=== PATIENT | male | born 1980 | race African-American/Black ===

== ENCOUNTER 2017-01-01 16:00 | Emergency (ER) | payer OTHER ==
[~2017-01-01] VITALS: Ht 180.3 cm; Wt 77.6 kg
[~2017-01-01 16:00] MED LIST: *INS REG3 IJ; NPH,100V2 SQ
--- NOTE | 2017-01-01 16:00 | NUR ---
BIB COUSIN DT ABDOMINAL, SHARP/ ACHING X THIS MORNING. DENIES NAUSEA AND VOMITTING. NO DIARHEA REPORTED. SKIN IS WARM TO TOUCH AND NON DIAPHORETIC. AFEBRILE. VSS
[2017-01-01] MEDS ORDERED: ONDANSETRON HCL/PF 4 MG/2 ML VIAL ONE (16:23)
[2017-01-01] MEDS ORDERED: MORPHINE SULFATE INJ 4 MG/ML DISP.SYRIN ONE (16:23)
[2017-01-01 16:30] LABS: BASOPHILS % (AUTO) 0.7 % (0.0-2.0); EOSINOPHILS # (AUTO) 0.1 /CMM (0.0-0.7); EOSINOPHILS % (AUTO) 1.5 % (0.0-6.0); HEMATOCRIT 43 % (39-51); HEMOGLOBIN 13.8 g/dL (13.5-17.5); LYMPHOCYTES # (AUTO) 1.8 /CMM (0.8-4.8); LYMPHOCYTES % (AUTO) 28.7 % (20.0-44.0); MEAN CORPUSCULAR HEMOGLOBIN 30 PG (26.0-33.0); MEAN CORPUSCULAR HGB CONC 32 g/dl (31.0-36.0); MEAN CORPUSCULAR VOLUME 95 fL (80-96); MONOCYTES # (AUTO) 0.5 /CMM (0.1-1.30); MONOCYTES % (AUTO) 7.3 % (2.0-12.0); NEUTROPHILS % (AUTO) 61.8 % (43.0-81.0); PLATELET COUNT (AUTO) 187 /CMM (150-450); RDW COEFFICIENT OF VARIATION 13.2 (11.5-15.0); RED BLOOD CELL COUNT(AUTO) 4.58 MIL/uL (4.5-6.0); WHITE BLOOD COUNT (AUTO) 6.4 K/uL (4.3-11.0)
[2017-01-01] MEDS ORDERED: IV NS 0.9% 1,000 ML BAG IV ONE (16:30)
[2017-01-01] MEDS ORDERED: ONDANSETRON HCL/PF 4 MG/2 ML VIAL IVP ONE (16:30)
[2017-01-01] MEDS ORDERED: MORPHINE SULFATE INJ 2 MG/ML DISP.SYRIN IV ONE (16:30)
[2017-01-01 16:43] LABS: CALCIUM, SERUM 9.1 mg/dL (8.5-10.1); CREATININE 1.2 mg/dL (0.6-1.3); POTASSIUM 3.9 mmol/L (3.5-5.1)
[2017-01-01 16:49] LABS: ALBUMIN 3.9 g/dL (3.4-5.0); BILIRUBIN,DIRECT 0.1 mg/dL (0.0-0.2); BILIRUBIN,TOTAL 0.5 mg/dL (0.2-1.0); TOTAL PROTEIN, SERUM 7.6 g/dL (6.4-8.2)
[2017-01-01 16:56] VITALS: BP 132/80
== END 2017-01-01 17:11 | disposition home or self-care (01) ==
LOC: ER 16:03
DX: R10.13 Epigastric pain (principal); R11.2 Nausea with vomiting, unspecified; E10.9 Type 1 diabetes mellitus without complications; F17.200 Nicotine dependence, unspecified, uncomplicated
CPT/HCPCS: 36415; 80048; 80076; 83690; 85025; 96361; 96374; 96375; 99284; A4606; J2270; J2405; J7030; Z7610

== ENCOUNTER 2017-01-23 00:44 | Emergency (ER) | payer OTHER ==
[~2017-01-23] VITALS: Ht 180.3 cm; Wt 77.6 kg
--- NOTE | 2017-01-23 00:54 | NUR ---
PT BIB FATHER FROM HOME, PT AMBULATORY TO ER BED 5. PT C/O UPPER ABD PAIN X 3 DAYS WITH N/V. PT GOWNED AND PLACED ON MONTIOR. PT AOX3 RR EVEN AND UNLABORED. NO SOB NOTED. NAD NOTED. NO NVD AT THIS TIME. PT NOT DIAPHORETIC. DR. DUARTE AT BEDSIDE FOR EVAL.
[2017-01-23] MEDS ORDERED: ONDANSETRON HCL/PF 4 MG/2 ML VIAL ONE ×2 (00:59→03:03)
[2017-01-23] MEDS ORDERED: HYDROMORPHONE INJ 2 MG/ML DISP.SYRIN IV ONE (01:00)
[2017-01-23] MEDS ORDERED: IV NS 0.9% 1,000 ML BAG IV ONE (01:00)
[2017-01-23] MEDS ORDERED: ONDANSETRON HCL/PF 4 MG/2 ML VIAL IVP ONE (01:00)
[2017-01-23] MEDS ORDERED: HYDROMORPHONE INJ 2 MG/ML DISP.SYRIN ONE ×3 (01:00→03:04)
--- NOTE | 2017-01-23 01:24 | NUR ---
LAB AT BEDSIDE FOR BLOOD DRAW. RT AT BEDSIDE FOR VBG DRAW.
[2017-01-23 01:27] LABS: ABG BASE EXCESS 0.6 mmol/L; ABG OXYGEN SATURATION 85.2 % (92.0-98.5); ABG PCO2 43.1 mmHg (35.0-45.0); ABG PH 7.393 (7.350-7.450); ABG PO2 51.5 mmHg (75.0-100.0); COHb 0.7 % (0.5-1.5); MetHb 0.6 % (0.0-1.5); O2Hb 84.1 % (94.0-97.0); VENT MODE, BG ROOM AIR
--- NOTE | 2017-01-23 01:29 | NUR ---
DR. DUARTE AT BEDSIDE. VERBAL ORDERS PER GERALD TO GIVE PT IVP DILAUDID 1MG NOW. PT MEDICATED.
--- NOTE | 2017-01-23 01:51 | NUR ---
COLLECTED URINE. CALLED FOR KARDEX CLERK.
[2017-01-23] MEDS ORDERED: HYDROMORPHONE 1 MG/1 ML DISP.SYRIN IV ONE ×2 (02:00→03:30)
[2017-01-23 02:01] LABS: BASOPHILS # (AUTO) 0.1 /CMM (0.0-0.2); BASOPHILS % (AUTO) 0.4 % (0.0-2.0); EOSINOPHILS # (AUTO) 0.1 /CMM (0.0-0.7); EOSINOPHILS % (AUTO) 0.5 % (0.0-6.0); HEMATOCRIT 40 % (39-51); HEMOGLOBIN 13.4 g/dL (13.5-17.5); LYMPHOCYTES # (AUTO) 1.6 /CMM (0.8-4.8); LYMPHOCYTES % (AUTO) 12.3 % (20.0-44.0); MEAN CORPUSCULAR HEMOGLOBIN 31 PG (26.0-33.0); MEAN CORPUSCULAR HGB CONC 33 g/dl (31.0-36.0); MEAN CORPUSCULAR VOLUME 94 fL (80-96); MONOCYTES # (AUTO) 0.7 /CMM (0.1-1.30); MONOCYTES % (AUTO) 5.5 % (2.0-12.0); NEUTROPHILS # (AUTO) 10.3 /CMM (1.8-8.9); NEUTROPHILS % (AUTO) 81.3 % (43.0-81.0); PLATELET COUNT (AUTO) 243 /CMM (150-450); RDW COEFFICIENT OF VARIATION 12.9 (11.5-15.0); RED BLOOD CELL COUNT(AUTO) 4.31 MIL/uL (4.5-6.0); WHITE BLOOD COUNT (AUTO) 12.6 K/uL (4.3-11.0)
[2017-01-23 02:03] LABS: ALBUMIN 3.1 g/dL (3.4-5.0); BILIRUBIN,DIRECT 0.1 mg/dL (0.0-0.2); BILIRUBIN,TOTAL 0.5 mg/dL (0.2-1.0); CALCIUM, SERUM 8.8 mg/dL (8.5-10.1); CREATININE 1.4 mg/dL (0.6-1.3); POTASSIUM 4.8 mmol/L (3.5-5.1); TOTAL PROTEIN, SERUM 7.5 g/dL (6.4-8.2)
[2017-01-23 02:23] LABS: APPEARANCE,URINE CLEAR (CLEAR); BILIRUBIN,URINE NEGATIVE (NEGATIVE); BLOOD, URINE NEGATIVE Ery/uL (NEGATIVE); COLOR,URINE YELLOW (YELLOW); KETONES,URINE NEGATIVE (NEGATIVE); LEUKOCYTE ESTERASE ,URINE NEGATIVE (NEGATIVE); NITRITE, URINE NEGATIVE (NEGATIVE); PROTEIN,URINE NEGATIVE (NEGATIVE); UGLUCOSE NEGATIVE (NEGATIVE); UROBILINOGEN,URINE 0.2 EU/dL (0.2)
[2017-01-23 02:30] LABS: INR 1.01 (0.87-1.13); PROTHROMBIN TIME 10.8 SECS (9.5-12.7)
[2017-01-23] MEDS ORDERED: INSULIN REGULAR, HUMAN 100 UNIT/ML 10 ML VIAL SQ ONE (02:30)
--- NOTE | 2017-01-23 03:07 | NUR ---
PT C/O ABD PAIN S/P PO CHALLENGE. DR. DUARTE MADE AWARE
--- NOTE | 2017-01-23 03:08 | NUR ---
VERBAL ORDERS PER DR. DUARTE TO GIVE IVP DILAUDID 1GM AND ZOFRAN 4MG NOW. PT MEDICATED.
--- NOTE | 2017-01-23 03:24 | NUR ---
PT ASSIGNED TO [facility] BED 322-1
--- NOTE | 2017-01-23 03:28 | NUR ---
REPORT GIVEN TO KATIE RAPP FOR [facility] BED 322-1
[2017-01-23] MEDS ORDERED: ONDANSETRON HCL/PF 4 MG/2 ML VIAL IV ONE (03:30)
[2017-01-23] MEDS ORDERED: diphenhydrAMINE HCL 50 MG/ML VIAL ONE (03:42)
[2017-01-23] MEDS ORDERED: diphenhydrAMINE HCL 50 MG/ML VIAL IV ONE (04:00)
--- NOTE | 2017-01-23 04:37 | NUR ---
DR. DUARTE AT BEDSIDE SPEAKING TO PT. PT STATES " I WANT TO WAIT THINGS OUT BEFORE I DECIDED WHAT TO DO"
--- NOTE | 2017-01-23 04:54 | NUR ---
PT PASSED PO CHALLENGE. DR. DUARTE MADE AWARE
--- NOTE | 2017-01-23 05:00 | NUR ---
IV removed. Catheter intact and site benign. Pressure and 4x4 applied to site. No bleeding noted. Patient discharged to home in stable condition. Written and verbal after care instructions given. Patient verbalizes understanding of instruction. ambulatory with a steady gait. instructed not to drive. pt verbalize understanding. pt accompanied by father
[2017-01-23 05:01] VITALS: BP 136/62
== END 2017-01-23 05:03 | disposition home or self-care (01) ==
LOC: ER 00:46
DX: K85.90 Acute pancreatitis without necrosis or infection, unspecified (principal); E10.65 Type 1 diabetes mellitus with hyperglycemia; F17.200 Nicotine dependence, unspecified, uncomplicated; E86.0 Dehydration; K86.1 Other chronic pancreatitis; Z79.4 Long term (current) use of insulin
CPT/HCPCS: 36415; 36600; 80048; 80076; 81001; 82962 ×2; 83690; 85025; 85730; 96361; 96372; 96374; 96375; 96376; 99284; A4606; J1170 ×3; J1200; J2405 ×2; J7030; Z7610; 81000-TC

== ENCOUNTER 2017-02-18 12:07 | Emergency (ER) | payer OTHER ==
[~2017-02-18] VITALS: Ht 180.3 cm; Wt 77.6 kg
--- NOTE | 2017-02-18 12:15 | NUR ---
AAOX3, CAME TO ER C/O UPPER ABDOMINAL PAIN. SKIN IS WARM AND DRY. RESP IS EVEN AND UNLABORED WITH NAD NOTED. AWAITING MD FOR EVAL.
[2017-02-18] MEDS ORDERED: IV NS 0.9% 1,000 ML BAG IV ONE (12:30)
[2017-02-18] MEDS ORDERED: HYDROMORPHONE INJ 2 MG/ML DISP.SYRIN IV ONE (12:30)
[2017-02-18] MEDS ORDERED: ONDANSETRON HCL/PF 4 MG/2 ML VIAL IVP ONE (12:30)
[2017-02-18] MEDS ORDERED: diphenhydrAMINE HCL 50 MG/ML VIAL IV ONE ×2 (12:30→15:00)
[2017-02-18] MEDS ORDERED: diphenhydrAMINE HCL 50 MG/ML VIAL ONE ×2 (12:33→14:44)
[2017-02-18] MEDS ORDERED: HYDROMORPHONE INJ 2 MG/ML DISP.SYRIN ONE ×3 (12:33→14:32)
[2017-02-18] MEDS ORDERED: ONDANSETRON HCL/PF 4 MG/2 ML VIAL ONE (12:33)
[2017-02-18 12:36] LABS: BASOPHILS % (AUTO) 0.3 % (0.0-2.0); EOSINOPHILS # (AUTO) 0.1 /CMM (0.0-0.7); EOSINOPHILS % (AUTO) 0.7 % (0.0-6.0); HEMATOCRIT 42 % (39-51); LYMPHOCYTES # (AUTO) 1.4 /CMM (0.8-4.8); LYMPHOCYTES % (AUTO) 17.7 % (20.0-44.0); MEAN CORPUSCULAR HEMOGLOBIN 31 PG (26.0-33.0); MEAN CORPUSCULAR HGB CONC 33 g/dl (31.0-36.0); MEAN CORPUSCULAR VOLUME 94 fL (80-96); MONOCYTES # (AUTO) 0.4 /CMM (0.1-1.30); MONOCYTES % (AUTO) 4.7 % (2.0-12.0); NEUTROPHILS # (AUTO) 6.1 /CMM (1.8-8.9); NEUTROPHILS % (AUTO) 76.6 % (43.0-81.0); PLATELET COUNT (AUTO) 195 /CMM (150-450); RDW COEFFICIENT OF VARIATION 13.6 (11.5-15.0); RED BLOOD CELL COUNT(AUTO) 4.46 MIL/uL (4.5-6.0); WHITE BLOOD COUNT (AUTO) 7.9 K/uL (4.3-11.0)
[2017-02-18 13:07] LABS: ALBUMIN 3.7 g/dL (3.4-5.0); BILIRUBIN,DIRECT 0.1 mg/dL (0.0-0.2); BILIRUBIN,TOTAL 0.5 mg/dL (0.2-1.0); CALCIUM, SERUM 9.2 mg/dL (8.5-10.1); CREATININE 1.4 mg/dL (0.6-1.3); POTASSIUM 4.1 mmol/L (3.5-5.1); TOTAL PROTEIN, SERUM 7.4 g/dL (6.4-8.2)
[2017-02-18] MEDS ORDERED: HYDROMORPHONE 1 MG/1 ML DISP.SYRIN IV ONE ×2 (13:30→14:00)
--- NOTE | 2017-02-18 13:30 | NUR ---
Patient is resting comfortably in bed with eyes closed. Easily aroused. VSS
[2017-02-18] MEDS ORDERED: IV NS 0.9% 1,000 ML IV ONE (14:00)
--- NOTE | 2017-02-18 15:22 | NUR ---
IV removed. Catheter intact and site benign. Pressure and 4x4 applied to site. No bleeding noted.Patient discharged to home in stable condition. Written and verbal after care instructions given. Patient verbalizes understanding of instruction.
[2017-02-18 15:38] VITALS: BP 115/76
== END 2017-02-18 15:39 | disposition home or self-care (01) ==
LOC: ER 12:08
DX: R10.9 Unspecified abdominal pain (principal); E10.9 Type 1 diabetes mellitus without complications; G89.29 Other chronic pain; F17.200 Nicotine dependence, unspecified, uncomplicated; Z79.4 Long term (current) use of insulin
CPT/HCPCS: 36415; 80048; 80076; 83690; 85025; 96361; 96374 ×2; 96375; 96376; 99284; A4606; J1170 ×3; J1200 ×2; J2405; J7030 ×2; Z7610

== ENCOUNTER 2017-03-14 09:14 | Emergency (ER) | payer OTHER ==
[~2017-03-14] VITALS: Ht 180.3 cm; Wt 79.4 kg
--- NOTE | 2017-03-14 09:14 | NUR ---
ABDOMIANL PAIN AND VOMITING SINCE THIS MORNING. PLACED ON MONITOR. AWAITING MD ORDER
[2017-03-14 09:45] LABS: BASOPHILS % (AUTO) 0.5 % (0.0-2.0); EOSINOPHILS # (AUTO) 0.1 /CMM (0.0-0.7); EOSINOPHILS % (AUTO) 1.3 % (0.0-6.0); HEMATOCRIT 41 % (39-51); HEMOGLOBIN 13.6 g/dL (13.5-17.5); LYMPHOCYTES # (AUTO) 1.3 /CMM (0.8-4.8); LYMPHOCYTES % (AUTO) 21.8 % (20.0-44.0); MEAN CORPUSCULAR HEMOGLOBIN 31 PG (26.0-33.0); MEAN CORPUSCULAR HGB CONC 33 g/dl (31.0-36.0); MEAN CORPUSCULAR VOLUME 94 fL (80-96); MONOCYTES # (AUTO) 0.3 /CMM (0.1-1.30); MONOCYTES % (AUTO) 4.6 % (2.0-12.0); NEUTROPHILS # (AUTO) 4.4 /CMM (1.8-8.9); NEUTROPHILS % (AUTO) 71.8 % (43.0-81.0); PLATELET COUNT (AUTO) 246 /CMM (150-450); RDW COEFFICIENT OF VARIATION 13.2 (11.5-15.0); RED BLOOD CELL COUNT(AUTO) 4.39 MIL/uL (4.5-6.0); WHITE BLOOD COUNT (AUTO) 6.1 K/uL (4.3-11.0)
[2017-03-14 09:54] LABS: CREATININE 1.2 mg/dL (0.6-1.3); POTASSIUM 3.6 mmol/L (3.5-5.1)
[2017-03-14 10:00] LABS: ALBUMIN 3.7 g/dL (3.4-5.0); BILIRUBIN,DIRECT 0.1 mg/dL (0.0-0.2); BILIRUBIN,TOTAL 0.3 mg/dL (0.2-1.0); TOTAL PROTEIN, SERUM 7.3 g/dL (6.4-8.2)
[2017-03-14] MEDS ORDERED: HYDROMORPHONE INJ 2 MG/ML DISP.SYRIN IV ONE (10:00)
[2017-03-14] MEDS ORDERED: IV NS 0.9% 500 ML BAG IV ONE (10:00)
[2017-03-14] MEDS ORDERED: IV NS 0.9% 1,000 ML BAG IV ONE (10:00)
[2017-03-14] MEDS ORDERED: ONDANSETRON HCL/PF 4 MG/2 ML VIAL IVP ONE (10:00)
[2017-03-14] MEDS ORDERED: LORAZEPAM INJ 2 MG/ML VIAL IV ONE (10:00)
[2017-03-14] MEDS ORDERED: ONDANSETRON HCL/PF 4 MG/2 ML VIAL ONE (10:11)
[2017-03-14] MEDS ORDERED: DEXTROSE 50%-WATER 50 ML DISP.SYRIN ONE (10:11)
[2017-03-14] MEDS ORDERED: HYDROMORPHONE 1 MG/1 ML DISP.SYRIN ONE (10:11)
[2017-03-14] MEDS ORDERED: LORAZEPAM INJ 2 MG/ML VIAL ONE (10:12)
[2017-03-14] MEDS ORDERED: DEXTROSE 50%-WATER 50 ML DISP.SYRIN IVP ONE (10:30)
--- NOTE | 2017-03-14 10:30 | NUR ---
BLOOD SUGAR 47, MD INFORMED. PATIENT MEDICATED PER MD ORDERS, INCLUDING D50.
[2017-03-14] MEDS ORDERED: HYDROCODONE/APAP 10/325MG 1 EA TABLET ONE (11:09)
--- NOTE | 2017-03-14 11:17 | NUR ---
CANCEL VBG PER DR RAY
[2017-03-14] MEDS ORDERED: HYDROCODONE/APAP 10/325MG 1 EA TABLET PO ONE (11:30)
--- NOTE | 2017-03-14 12:06 | NUR ---
IV removed. Catheter intact and site benign. Pressure and 4x4 applied to site. No bleeding noted.
--- NOTE | 2017-03-14 12:06 | NUR ---
Patient discharged to home in stable condition. Written and verbal after care instructions given. Patient verbalizes understanding of instruction.
[2017-03-14 12:07] VITALS: BP 135/92
== END 2017-03-14 12:07 | disposition home or self-care (01) ==
LOC: ER 09:15 → UNDOADMIN 11:17 → MED 11:17
DX: K86.1 Other chronic pancreatitis (principal); F11.20 Opioid dependence, uncomplicated; E11.9 Type 2 diabetes mellitus without complications; F17.200 Nicotine dependence, unspecified, uncomplicated; Z79.4 Long term (current) use of insulin
CPT/HCPCS: 36415; 80048; 80076; 82962 ×2; 83690; 85025; 96361; 96374; 96375; 99284; A4606; J1170; J2060; J2405; J7030; J7040; Z7610

== ENCOUNTER 2017-03-24 12:28 | Emergency (ER) | payer OTHER ==
[~2017-03-24] VITALS: Ht 180.3 cm; Wt 77.6 kg
--- NOTE | 2017-03-24 12:28 | NUR ---
SELF PRESENTS TO ER C/O DIFFUSE ABD PAIN SINCE 4AM TODAY. A/OX 4. BREATHING EVEN AND UNLABORED ON ROOM AIR. NO SOB. VITALS STABLE. SAFETY AND COMFORT MEASURES IN PLACE. AWAITING MD ORDERS.
--- NOTE | 2017-03-24 13:20 | NUR ---
NEW IV STARTED ON RFA, 18 G.
[2017-03-24] MEDS ORDERED: ONDANSETRON HCL/PF 4 MG/2 ML VIAL IV ONE ×2 (13:30→14:30)
[2017-03-24] MEDS ORDERED: FAMOTIDINE/PF INJ 20 MG/2 ML VIAL IV ONE ×2 (13:30→13:37)
[2017-03-24] MEDS ORDERED: IV NS 0.9% 1,000 ML BAG IV ONE (13:30)
[2017-03-24] MEDS ORDERED: MORPHINE SULFATE INJ 2 MG/ML DISP.SYRIN IV ONE (13:30)
[2017-03-24] MEDS ORDERED: ONDANSETRON HCL/PF 4 MG/2 ML VIAL ONE ×2 (13:37→14:23)
[2017-03-24] MEDS ORDERED: MORPHINE SULFATE INJ 10 MG/ML DISP.SYRIN ONE (13:37)
--- NOTE | 2017-03-24 13:43 | NUR ---
PATIENT MEDICATED PER MD ORDERS.
[2017-03-24 13:52] LABS: BASOPHILS % (AUTO) 0.4 % (0.0-2.0); EOSINOPHILS % (AUTO) 0.7 % (0.0-6.0); HEMATOCRIT 41 % (39-51); HEMOGLOBIN 13.8 g/dL (13.5-17.5); LYMPHOCYTES # (AUTO) 1.1 /CMM (0.8-4.8); LYMPHOCYTES % (AUTO) 19.5 % (20.0-44.0); MEAN CORPUSCULAR HEMOGLOBIN 32 PG (26.0-33.0); MEAN CORPUSCULAR HGB CONC 34 g/dl (31.0-36.0); MEAN CORPUSCULAR VOLUME 94 fL (80-96); MONOCYTES # (AUTO) 0.4 /CMM (0.1-1.30); MONOCYTES % (AUTO) 6.6 % (2.0-12.0); NEUTROPHILS % (AUTO) 72.8 % (43.0-81.0); PLATELET COUNT (AUTO) 211 /CMM (150-450); RDW COEFFICIENT OF VARIATION 14.2 (11.5-15.0); RED BLOOD CELL COUNT(AUTO) 4.34 MIL/uL (4.5-6.0); WHITE BLOOD COUNT (AUTO) 5.6 K/uL (4.3-11.0)
[2017-03-24 14:03] LABS: CALCIUM, SERUM 9.7 mg/dL (8.5-10.1); CREATININE 1.3 mg/dL (0.6-1.3); POTASSIUM 3.9 mmol/L (3.5-5.1)
[2017-03-24 14:06] LABS: ALBUMIN 3.8 g/dL (3.4-5.0); BILIRUBIN,DIRECT 0.1 mg/dL (0.0-0.2); BILIRUBIN,TOTAL 0.4 mg/dL (0.2-1.0); TOTAL PROTEIN, SERUM 7.5 g/dL (6.4-8.2)
[2017-03-24] MEDS ORDERED: MAG HYDROX/AL HYDROX/SIMETH 30 ML UDC ONE (14:23)
[2017-03-24] MEDS ORDERED: ACETAMINOPHEN ES 500 MG TABLET ONE (14:23)
[2017-03-24] MEDS ORDERED: ACETAMINOPHEN ES 500 MG TABLET PO ONE (14:30)
[2017-03-24] MEDS ORDERED: MAG HYDROX/AL HYDROX/SIMETH 30 ML UDC PO ONE (14:30)
--- NOTE | 2017-03-24 14:37 | NUR ---
IV removed. Catheter intact and site benign. Pressure and 4x4 applied to site. No bleeding noted. Patient discharged to home in stable condition. Written and verbal after care instructions given. Patient verbalizes understanding of instruction.
[2017-03-24 14:41] VITALS: BP 124/81
== END 2017-03-24 14:35 | disposition home or self-care (01) ==
LOC: ER 12:30
DX: Z76.5 Malingerer [conscious simulation] (principal); R10.13 Epigastric pain; E10.9 Type 1 diabetes mellitus without complications; F17.200 Nicotine dependence, unspecified, uncomplicated; Z79.4 Long term (current) use of insulin
CPT/HCPCS: 36415; 80048; 80076; 83690; 85025; 96374; 96375; 96376; 99284; A4606; J2270; J2405 ×2; J3490; J7030; Z7610

== ENCOUNTER 2017-03-30 03:24 | Emergency (ER) | payer OTHER ==
[~2017-03-30] VITALS: Ht 180.3 cm; Wt 77.6 kg
--- NOTE | 2017-03-30 03:40 | NUR ---
BIB GIRLFRIEND, C/O UPPER ABD PAIN SINCE 11PM. HX PANCREATITIS. PT AOX3 RR EVEN AND UNLABORED. NO SOB NOTED. NAD NOTED. NO NVD AT THIS TIME. PT GOWNED AND PLACED ON MONITOR WAITING FOR MD LUNDBERG.
--- NOTE | 2017-03-30 03:44 | NUR ---
DR. BROWN AT BEDSIDE FOR EVAL.
[2017-03-30] MEDS ORDERED: ONDANSETRON HCL/PF 4 MG/2 ML VIAL ONE (03:45)
[2017-03-30 03:54] LABS: BASOPHILS % (AUTO) 0.3 % (0.0-2.0); EOSINOPHILS # (AUTO) 0.1 /CMM (0.0-0.7); EOSINOPHILS % (AUTO) 1.3 % (0.0-6.0); HEMATOCRIT 38 % (39-51); HEMOGLOBIN 12.6 g/dL (13.5-17.5); LYMPHOCYTES # (AUTO) 1.6 /CMM (0.8-4.8); LYMPHOCYTES % (AUTO) 30.5 % (20.0-44.0); MEAN CORPUSCULAR HEMOGLOBIN 32 PG (26.0-33.0); MEAN CORPUSCULAR HGB CONC 34 g/dl (31.0-36.0); MEAN CORPUSCULAR VOLUME 95 fL (80-96); MONOCYTES # (AUTO) 0.3 /CMM (0.1-1.30); MONOCYTES % (AUTO) 5.1 % (2.0-12.0); NEUTROPHILS # (AUTO) 3.3 /CMM (1.8-8.9); NEUTROPHILS % (AUTO) 62.8 % (43.0-81.0); PLATELET COUNT (AUTO) 175 /CMM (150-450); RDW COEFFICIENT OF VARIATION 14.6 (11.5-15.0); RED BLOOD CELL COUNT(AUTO) 3.95 MIL/uL (4.5-6.0); WHITE BLOOD COUNT (AUTO) 5.3 K/uL (4.3-11.0)
[2017-03-30] MEDS ORDERED: HYDROMORPHONE INJ 2 MG/ML DISP.SYRIN ONE (03:59)
[2017-03-30] MEDS ORDERED: ONDANSETRON HCL/PF 4 MG/2 ML VIAL IVP ONE (04:00)
[2017-03-30] MEDS ORDERED: MORPHINE SULFATE INJ 2 MG/ML DISP.SYRIN IV ONE (04:00)
[2017-03-30] MEDS ORDERED: IV NS 0.9% 1,000 ML BAG IV ONE (04:00)
[2017-03-30] MEDS ORDERED: HYDROMORPHONE 1 MG/1 ML DISP.SYRIN IV ONE (04:00)
--- NOTE | 2017-03-30 04:05 | NUR ---
RECEIVED MEDICATION FROM [facility] Addendum: 04/01/17 at 0700 by ATADINA RECEIVED MEDICATION, DILAUDID 2MG IV FROM [facility]; WASTED 1.75MG WITH KOKO ASKEW MD ORDER DILAUDID 0.25 MG IVP.
[2017-03-30 04:07] LABS: INR 0.95 (0.87-1.13); PROTHROMBIN TIME 9.9 SECS (9.5-12.7)
--- NOTE | 2017-03-30 04:11 | NUR ---
URINE COLLECTED. CALLED LAB FOR PACKAGING TECH.
--- NOTE | 2017-03-30 04:17 | NUR ---
PT TO CT
[2017-03-30 04:18] LABS: ALBUMIN 3.3 g/dL (3.4-5.0); BILIRUBIN,DIRECT 0.1 mg/dL (0.0-0.2); BILIRUBIN,TOTAL 0.2 mg/dL (0.2-1.0); CREATININE 1.3 mg/dL (0.6-1.3); POTASSIUM 4.2 mmol/L (3.5-5.1); TOTAL PROTEIN, SERUM 6.7 g/dL (6.4-8.2)
--- NOTE | 2017-03-30 04:21 | NUR ---
PT RETURNED FROM CT.
[2017-03-30] MEDS ORDERED: MAG HYDROX/AL HYDROX/SIMETH 30 ML UDC ONE (04:38)
[2017-03-30] MEDS ORDERED: LIDOCAINE VISCOUS 2% UD 15 ML UDC ONE (04:38)
[2017-03-30 04:39] LABS: APPEARANCE,URINE CLEAR (CLEAR); COLOR,URINE YELLOW (YELLOW)
[2017-03-30 04:40] LABS: BILIRUBIN,URINE NEGATIVE (NEGATIVE); BLOOD, URINE TRACE Ery/uL (NEGATIVE); KETONES,URINE NEGATIVE (NEGATIVE); NITRITE, URINE NEGATIVE (NEGATIVE); PROTEIN,URINE TRACE mg/dl (NEGATIVE); UGLUCOSE 3+ mg/dL (NEGATIVE); UROBILINOGEN,URINE 0.2 EU/dL (0.2)
[2017-03-30 04:41] LABS: LEUKOCYTE ESTERASE ,URINE NEGATIVE (NEGATIVE)
[2017-03-30 04:43] LABS: BACTERIA,URINE None seen /HPF (None Seen); RBC,URINE 0-2 /HPF (0-2); SQUAMOUS EPITHELIAL CELL,UR Few /HPF (None Seen); WBC,URINE 0-2 /HPF (0-3)
[2017-03-30] MEDS ORDERED: MAG HYDROX/AL HYDROX/SIMETH 30 ML UDC PO ONE (05:00)
[2017-03-30] MEDS ORDERED: LIDOCAINE VISCOUS 2% UD 15 ML UDC MM ONE (05:00)
[2017-03-30] MEDS ORDERED: INSULIN REGULAR, HUMAN 100 UNIT/ML 10 ML VIAL ONE (05:09)
--- NOTE | 2017-03-30 05:24 | NUR ---
IV removed. Catheter intact and site benign. Pressure and 4x4 applied to site. No bleeding noted. Patient discharged to home in stable condition. Written and verbal after care instructions given. Patient verbalizes understanding of instruction. ambulatory with a steady gait. instructed not to drive. pt verbalize understanding. pt refused to recheck bs after receiving insulin. Patient does not wish to proceed with medical care recommended by Dr. Valente. Patient given information related to possible complications, up to and including , which could occur as a result of leaving the hospital at this time. Patient verbalizes understanding of risks involved due to leaving against medical advice. Patient has signed AMA form.
[2017-03-30 05:27] VITALS: BP 142/82
[2017-03-30] MEDS ORDERED: INSULIN REGULAR, HUMAN 100 UNIT/ML 10 ML VIAL SQ ONE (05:30)
== END 2017-03-30 05:36 | disposition left against medical advice (07) ==
LOC: ER 03:30
DX: K21.9 Gastro-esophageal reflux disease without esophagitis (principal); F12.90 Cannabis use, unspecified, uncomplicated; E11.9 Type 2 diabetes mellitus without complications; E10.9 Type 1 diabetes mellitus without complications; F17.200 Nicotine dependence, unspecified, uncomplicated; Z79.4 Long term (current) use of insulin; Z76.5 Malingerer [conscious simulation]
CPT/HCPCS: 36415; 74176; 80048; 80076; 80305; 81001; 82962 ×3; 83690; 85025; 85730; 93005; 96361; 96372; 96374; 96375; 99285; A4606; G0480; J1170; J1815; J2405; J7030; Z7610; 81000-TC

== ENCOUNTER 2017-06-03 04:26 | Emergency (ER) | payer OTHER ==
[~2017-06-03] VITALS: Ht 180.3 cm; Wt 77.6 kg
--- NOTE | 2017-06-03 05:11 | NUR ---
PT RECEIEVED FROM HOME BIB FROM HOME C/O RUQ ABDOMINAL PAIN X2 HOURS BUT STATED "I HAVE PANCREATITIS FOR 5 YEARS NOW" WITH PAIN AT 7/10 NONRADIATING. NO SOB NOTED AT THIS TIME. WAS SEEN SLIDING TO FLOOR IN WAITING ROOM D/T PAIN WITH OUTBURSTS OF "OW". A/OX4 VSS AND WILL CONTINUE TO MONITOR FOR ANY CHANGES
[2017-06-03] MEDS ORDERED: IV NS 0.9% 1,000 ML BAG IV ONE (05:30)
[2017-06-03 05:34] LABS: BASOPHILS % (AUTO) 0.1 % (0.0-2.0); EOSINOPHILS # (AUTO) 0.1 /CMM (0.0-0.7); EOSINOPHILS % (AUTO) 0.9 % (0.0-6.0); HEMATOCRIT 40 % (39-51); HEMOGLOBIN 13.6 g/dL (13.5-17.5); LYMPHOCYTES # (AUTO) 1.3 /CMM (0.8-4.8); LYMPHOCYTES % (AUTO) 20.8 % (20.0-44.0); MEAN CORPUSCULAR HEMOGLOBIN 32 PG (26.0-33.0); MEAN CORPUSCULAR HGB CONC 34 g/dl (31.0-36.0); MEAN CORPUSCULAR VOLUME 94 fL (80-96); MONOCYTES # (AUTO) 0.3 /CMM (0.1-1.30); MONOCYTES % (AUTO) 4.5 % (2.0-12.0); NEUTROPHILS # (AUTO) 4.7 /CMM (1.8-8.9); NEUTROPHILS % (AUTO) 73.7 % (43.0-81.0); PLATELET COUNT (AUTO) 214 /CMM (150-450); RDW COEFFICIENT OF VARIATION 12.6 (11.5-15.0); RED BLOOD CELL COUNT(AUTO) 4.21 MIL/uL (4.5-6.0); WHITE BLOOD COUNT (AUTO) 6.4 K/uL (4.3-11.0)
[2017-06-03 05:44] LABS: CALCIUM, SERUM 9.2 mg/dL (8.5-10.1); CREATININE 1.4 mg/dL (0.6-1.3); POTASSIUM 3.6 mmol/L (3.5-5.1)
[2017-06-03 05:50] LABS: ALBUMIN 3.7 g/dL (3.4-5.0); BILIRUBIN,DIRECT 0.1 mg/dL (0.0-0.2); BILIRUBIN,TOTAL 0.2 mg/dL (0.2-1.0); TOTAL PROTEIN, SERUM 7.4 g/dL (6.4-8.2)
[2017-06-03] MEDS ORDERED: ONDANSETRON HCL/PF 4 MG/2 ML VIAL ONE ×2 (06:05→07:35)
--- NOTE | 2017-06-03 06:25 | NUR ---
ER MD DELGADILLO IN ROOM FOR EVAL
[2017-06-03] MEDS ORDERED: diphenhydrAMINE HCL 50 MG/ML VIAL ONE (06:27)
[2017-06-03] MEDS ORDERED: HYDROMORPHONE 1 MG/1 ML DISP.SYRIN ONE ×2 (06:28→07:31)
[2017-06-03] MEDS ORDERED: diphenhydrAMINE HCL 50 MG/ML VIAL IV ONE (07:00)
[2017-06-03] MEDS ORDERED: ONDANSETRON HCL/PF - ER 4 MG/2 ML VIAL IV ONE ×2 (07:00→08:00)
[2017-06-03] MEDS ORDERED: HYDROMORPHONE 1 MG/1 ML DISP.SYRIN IV ONE (07:00)
[2017-06-03] MEDS ORDERED: INSULIN REGULAR, HUMAN 100 UNIT/ML 10 ML VIAL SQ ONE (07:00)
--- NOTE | 2017-06-03 07:05 | NUR ---
PT LAYING IN COMFORTABLE POSITION. NOT C/O PAIN AFTER RECEIVING ORDERED MEDS. WILL ENDORSE CARE TO AM NURSE
[2017-06-03] MEDS ORDERED: HYDROMORPHONE INJ 0.5 MG/0.5 ML SYRINGE IV ONE (07:30)
[2017-06-03 08:34] VITALS: BP 147/80
== END 2017-06-03 08:35 | disposition home or self-care (01) ==
LOC: ER 04:28
DX: R10.84 Generalized abdominal pain (principal); G89.29 Other chronic pain; E10.9 Type 1 diabetes mellitus without complications; F17.200 Nicotine dependence, unspecified, uncomplicated; Z79.4 Long term (current) use of insulin
CPT/HCPCS: 36415; 80048; 80076; 82962; 83690; 85025; 96372; 96374; 96375; 96376; 99284; A4606; J1170 ×2; J1200; J2405 ×4; Z7610

== ENCOUNTER 2019-11-03 02:07 | Emergency (ER) | payer OTHER ==
[~2019-11-03] VITALS: Ht 180.3 cm; Wt 77.6 kg
[2019-11-03] MEDS ORDERED: MORPHINE SULFATE INJ 4 MG/ML DISP.SYRIN ONE (02:18)
[2019-11-03] MEDS ORDERED: ONDANSETRON HCL/PF 4 MG/2 ML VIAL ONE (02:18)
--- NOTE | 2019-11-03 02:20 | NUR ---
PT [id number] FROM [facility] FOR ABD PAIN X 1D, +N/V. HX OF PANCREATITIS. PT AAOX4, RESPIRATIONS EVEN AND UNLABORED ON RA W/ NAD NOTED. PT CONNECTED TO THE MONITOR AND POX
[2019-11-03] MEDS ORDERED: ONDANSETRON HCL/PF 4 MG/2 ML VIAL IVP ONE (02:30)
[2019-11-03] MEDS ORDERED: MORPHINE SULFATE INJ 2 MG/ML DISP.SYRIN IV ONE (02:30)
[2019-11-03] MEDS ORDERED: IV NS 0.9% 1,000 ML BAG IV ONE (02:30)
--- NOTE | 2019-11-03 02:31 | NUR ---
BLOOD COLLECTED AND SENT TO LAB
[2019-11-03] MEDS ORDERED: IV NS 0.9% 250 ML IV ONE (02:51)
[2019-11-03] MEDS ORDERED: IOHEXOL-300 100 ML VIAL IV ONE (02:51)
[2019-11-03] MEDS ORDERED: CT SWABBABLE VALVE TRANS SET 1 EA INFUS.SET MC ONE (02:51)
[2019-11-03 03:00] LABS: ALBUMIN 3.7 g/dL (3.4-5.0); BILIRUBIN,DIRECT 0.1 mg/dL (0.0-0.2); BILIRUBIN,TOTAL 0.7 mg/dL (0.2-1.0); CALCIUM, SERUM 9.1 mg/dL (8.5-10.1); CREATININE 1.5 mg/dL (0.6-1.3); POTASSIUM 3.7 mmol/L (3.5-5.1); TOTAL PROTEIN, SERUM 7.2 g/dL (6.4-8.2)
--- NOTE | 2019-11-03 03:06 | NUR ---
PT STILL COMPLAINING OF PAIN. MD AWARE. PER VERBAL MD ORDER, WILL ADMINISTER 0.5MG DILAUDID IV X1 NOW
[2019-11-03] MEDS ORDERED: HYDROMORPHONE 1 MG/1 ML DISP.SYRIN ONE (03:09)
[2019-11-03 03:14] LABS: BASOPHILS % (AUTO) 0.4 % (0.0-2.0); EOSINOPHILS % (AUTO) 0.4 % (0.0-6.0); HEMATOCRIT 45 % (39-51); HEMOGLOBIN 15.1 g/dL (13.5-17.5); LYMPHOCYTES # (AUTO) 1.9 /CMM (0.8-4.8); LYMPHOCYTES % (AUTO) 24.4 % (20.0-44.0); MEAN CORPUSCULAR HGB CONC 33 g/dl (31.0-36.0); MEAN CORPUSCULAR VOLUME 93 fL (80-96); MONOCYTES # (AUTO) 0.5 /CMM (0.1-1.30); MONOCYTES % (AUTO) 5.7 % (2.0-12.0); NEUTROPHILS # (AUTO) 5.5 /CMM (1.8-8.9); NEUTROPHILS % (AUTO) 69.1 % (43.0-81.0); PLATELET COUNT (AUTO) 209 /CMM (150-450); RED BLOOD CELL COUNT(AUTO) 4.87 MIL/uL (4.5-6.0)
--- NOTE | 2019-11-03 03:19 | NUR ---
PT TAKEN TO RADIOLOGY FOR CT
[2019-11-03] MEDS ORDERED: HYDROMORPHONE INJ 0.5 MG/0.5 ML SYRINGE IV ONE (04:00)
--- NOTE | 2019-11-03 05:20 | NUR ---
PATIENT RUDE TO STAFFS. CALLING STAFFS "HOES".
--- NOTE | 2019-11-03 05:24 | NUR ---
IV removed. Catheter intact and site benign. Pressure and 4x4 applied to site. No bleeding noted.
--- NOTE | 2019-11-03 05:24 | NUR ---
Patient discharged to home in stable condition. Written and verbal after care instructions given. Patient verbalizes understanding of instruction.
[2019-11-03 05:25] VITALS: BP 126/74
== END 2019-11-03 05:25 | disposition home or self-care (01) ==
LOC: ER 02:08
DX: R10.11 Right upper quadrant pain (principal); R10.12 Left upper quadrant pain; R11.2 Nausea with vomiting, unspecified; F12.90 Cannabis use, unspecified, uncomplicated; E11.9 Type 2 diabetes mellitus without complications; Z79.4 Long term (current) use of insulin
CPT/HCPCS: 36415; 74177; 80048; 80076; 83690; 85025; 96361; 96374; 96375; 99285; J1170; J2270; J2405; J7030; J7050; Q9967

== ENCOUNTER 2019-11-04 19:50 | Emergency (ER) | payer OTHER ==
[~2019-11-04] VITALS: Ht 180.3 cm; Wt 69.9 kg
[2019-11-04] MEDS ORDERED: MORPHINE SULFATE INJ 4 MG/ML DISP.SYRIN ONE (20:14)
[2019-11-04] MEDS ORDERED: ONDANSETRON HCL/PF 4 MG/2 ML VIAL ONE (20:14)
--- NOTE | 2019-11-04 20:20 | NUR ---
GRACIE TO ER BED 14. AAOX4. NOT IN RESP DISRTESS. AMBULATORY. CAME IN FOR RUQ ABDOMINAL PAIN FOR THE ECHO 2.5 DAYS. TODAY PAIN IS WORST IN THE MORNING. REPORTS NAUSEA AND VOMMITING. PT HAVE HX OF PANCREATITIS. DENIES ALCOHOL CONSUMPTION. JUSTIN LIND AT BEDSIDE FOR EVAL. ORDERS RECEIVED NOTED AND CARRIED OUT
[2019-11-04 20:26] LABS: BASOPHILS # (AUTO) 0.1 /CMM (0.0-0.2); EOSINOPHILS % (AUTO) 0.4 % (0.0-6.0); HEMATOCRIT 45 % (39-51); HEMOGLOBIN 14.8 g/dL (13.5-17.5); LYMPHOCYTES # (AUTO) 1.9 /CMM (0.8-4.8); LYMPHOCYTES % (AUTO) 29.9 % (20.0-44.0); MEAN CORPUSCULAR HGB CONC 33 g/dl (31.0-36.0); MEAN CORPUSCULAR VOLUME 93 fL (80-96); MONOCYTES # (AUTO) 0.4 /CMM (0.1-1.30); MONOCYTES % (AUTO) 6.8 % (2.0-12.0); NEUTROPHILS % (AUTO) 61.9 % (43.0-81.0); PLATELET COUNT (AUTO) 236 /CMM (150-450); RED BLOOD CELL COUNT(AUTO) 4.78 MIL/uL (4.5-6.0); WHITE BLOOD COUNT (AUTO) 6.5 K/uL (4.3-11.0)
[2019-11-04] MEDS ORDERED: ONDANSETRON HCL/PF 4 MG/2 ML VIAL IVP ONE (20:30)
[2019-11-04] MEDS ORDERED: IV NS 0.9% 1,000 ML BAG IV ONE (20:30)
[2019-11-04] MEDS ORDERED: MORPHINE SULFATE INJ 2 MG/ML DISP.SYRIN IV ONE (20:30)
[2019-11-04 20:49] LABS: ALBUMIN 4.1 g/dL (3.4-5.0); BILIRUBIN,DIRECT 0.1 mg/dL (0.0-0.2); BILIRUBIN,TOTAL 0.4 mg/dL (0.2-1.0); CALCIUM, SERUM 9.9 mg/dL (8.5-10.1); CREATININE 1.9 mg/dL (0.6-1.3); POTASSIUM 3.9 mmol/L (3.5-5.1); TOTAL PROTEIN, SERUM 7.9 g/dL (6.4-8.2)
[2019-11-04] MEDS ORDERED: DICYCLOMINE HCL 10 MG CAPSULE PO ONE (21:24)
[2019-11-04] MEDS ORDERED: METOCLOPRAMIDE HCL 10 MG/2 ML VIAL ONE (21:24)
[2019-11-04] MEDS ORDERED: diphenhydrAMINE HCL 50 MG/ML VIAL ONE (21:27)
[2019-11-04] MEDS ORDERED: DICYCLOMINE HCL 10 MG/5 ML UDC PO ONE (21:30)
[2019-11-04] MEDS ORDERED: diphenhydrAMINE HCL 50 MG/ML VIAL IV ONE (21:30)
[2019-11-04] MEDS ORDERED: METOCLOPRAMIDE HCL 10 MG/2 ML VIAL IV ONE (21:30)
--- NOTE | 2019-11-04 23:17 | NUR ---
Patient discharged to home in stable condition. Written and verbal after care instructions given. Patient verbalizes understanding of instruction.IV removed. Catheter intact and site benign. Pressure and 4x4 applied to site. No bleeding noted. Pt ambulatory with a steady gait
[2019-11-04 23:18] VITALS: BP 112/75
== END 2019-11-04 23:18 | disposition home or self-care (01) ==
LOC: ER 19:51
DX: E11.65 Type 2 diabetes mellitus with hyperglycemia (principal); R10.10 Upper abdominal pain, unspecified; R11.2 Nausea with vomiting, unspecified; Z76.5 Malingerer [conscious simulation]; Z79.899 Other long term (current) drug therapy; Z79.4 Long term (current) use of insulin
CPT/HCPCS: 36415; 80048; 80076; 83690; 85025; 85730; 96361; 96374; 96375; 99284; J1200; J2270; J2405; J2765; J7030

== ENCOUNTER 2020-02-10 16:24 | Emergency (ER) | payer OTHER ==
[2020-02-10] MEDS ORDERED: EPINEPHRINE (1:1000) 1 MG/ML AMPUL ONE (16:26)
[2020-02-10] MEDS ORDERED: diphenhydrAMINE HCL 50 MG/ML VIAL ONE (16:39)
[2020-02-10] MEDS ORDERED: methylPREDNISolone SOD SUCC 125 MG/2ML VIAL ONE (16:39)
[2020-02-10] MEDS ORDERED: FAMOTIDINE/PF INJ 20 MG/2 ML VIAL IV ONE ×2 (16:41→17:00)
[2020-02-10] MEDS ORDERED: methylPREDNISolone SOD SUCC 125 MG/2ML VIAL IV ONE (17:00)
[2020-02-10] MEDS ORDERED: diphenhydrAMINE HCL 50 MG/ML VIAL IV ONE (17:00)
[2020-02-10] MEDS ORDERED: EPINEPHRINE (1:1000) 1 MG/ML AMPUL IM ONE (17:00)
[2020-02-10] MEDS ORDERED: IV NS 0.9% 1,000 ML BAG IV ONE (17:00)
[2020-02-10] MEDS ORDERED: IV NS 0.9% 1,000 ML IV ONE ×2 (17:30→18:00)
[2020-02-10] MEDS ORDERED: INSULIN REGULAR, HUMAN 100 UNIT/ML 10 ML VIAL ONE (17:50)
[2020-02-10] MEDS ORDERED: LORAZEPAM INJ 2 MG/ML VIAL ONE (17:52)
[2020-02-10] MEDS ORDERED: INSU100V7 SQ ×2 (17:55)
[2020-02-10] MEDS ORDERED: INSULIN REGULAR, HUMAN 100 UNIT/ML 10 ML VIAL IV ONE (18:00)
[2020-02-10] MEDS ORDERED: LORAZEPAM INJ 2 MG/ML VIAL IV ONE (18:00)
== END 2020-02-10 20:04 | disposition home or self-care (01) ==
DX: E10.65 Type 1 diabetes mellitus with hyperglycemia (principal); K13.79 Other lesions of oral mucosa; M62.838 Other muscle spasm; Z79.4 Long term (current) use of insulin
CPT/HCPCS: 36415; 36600; 71045; 80048; 80076; 82803; 82962; 85025; 87081; 93005 ×2; 96361; 96372 ×2; 96374; 96375; 99285; J0171; J1200; J1815; J2060; J2930; J3490; J7030 ×3

== ENCOUNTER 2020-02-25 19:28 | Emergency (ER) | payer OTHER ==
[~2020-02-25] VITALS: Ht 180.3 cm; Wt 74.8 kg
[~2020-02-25 19:28] MED LIST changes: +INSU100V7 SQ; -NPH,100V2 SQ
--- NOTE | 2020-02-25 19:43 | NUR ---
PATIENT CAME TO ER BED 12 C/O SHARP UPPER ABDOMINAL PAIN RADIATING TO THE BACK SINCE 5x HOURS AGO. PT HX OF PANCREATITIS AND DIABETES. PATIENT IS AAOX4. NO SOB .BREATHING EVENLY AND UNLABORED ON ROOM AIR. CONNECTED TO THE MONITOR.
[2020-02-25] MEDS ORDERED: PANTOPRAZOLE 40 MG VIAL ONE (20:13)
[2020-02-25] MEDS ORDERED: MORPHINE SULFATE INJ 4 MG/ML DISP.SYRIN ONE (20:13)
[2020-02-25] MEDS ORDERED: ONDANSETRON HCL/PF 4 MG/2 ML VIAL ONE ×2 (20:13→21:39)
[2020-02-25] MEDS ORDERED: ONDANSETRON HCL/PF 4 MG/2 ML VIAL IVP ONE (20:30)
[2020-02-25] MEDS ORDERED: IV NS 0.9% 1,000 ML BAG IV ONE (20:30)
[2020-02-25] MEDS ORDERED: PANTOPRAZOLE 40 MG VIAL IV ONE (20:30)
[2020-02-25] MEDS ORDERED: MORPHINE SULFATE INJ 2 MG/ML DISP.SYRIN IV ONE (20:30)
--- NOTE | 2020-02-25 20:39 | NUR ---
PATIENT IS ASKING FOR DILAUDID. CAMILO ANDERSON NOTIFIED.
[2020-02-25 20:49] LABS: BASOPHILS # (AUTO) 0.1 /CMM (0.0-0.2); BASOPHILS % (AUTO) 0.9 % (0.0-2.0); EOSINOPHILS % (AUTO) 1.7 % (0.0-6.0); HEMATOCRIT 39 % (39-51); HEMOGLOBIN 13.2 g/dL (13.5-17.5); LYMPHOCYTES % (AUTO) 31.2 % (20.0-44.0); MEAN CORPUSCULAR HGB CONC 33 g/dl (31.0-36.0); MEAN CORPUSCULAR VOLUME 94 fL (80-96); MONOCYTES # (AUTO) 0.4 /CMM (0.1-1.30); MONOCYTES % (AUTO) 6.2 % (2.0-12.0); NEUTROPHILS # (AUTO) 3.9 /CMM (1.8-8.9); PLATELET COUNT (AUTO) 220 /CMM (150-450); RED BLOOD CELL COUNT(AUTO) 4.21 MIL/uL (4.5-6.0); WHITE BLOOD COUNT (AUTO) 6.5 K/uL (4.3-11.0)
[2020-02-25 20:55] LABS: CALCIUM, SERUM 9.3 mg/dL (8.5-10.1); CREATININE 1.4 mg/dL (0.6-1.3)
--- NOTE | 2020-02-25 20:56 | NUR ---
PATIENT AMBULATED WITH A STEADY GAIT.
[2020-02-25 21:03] LABS: ALBUMIN 3.9 g/dL (3.4-5.0); BILIRUBIN,DIRECT 0.1 mg/dL (0.0-0.2); BILIRUBIN,TOTAL 0.2 mg/dL (0.2-1.0); TOTAL PROTEIN, SERUM 7.6 g/dL (6.4-8.2)
[2020-02-25] MEDS ORDERED: HYDROMORPHONE 1 MG/1 ML DISP.SYRIN ONE (21:23)
[2020-02-25] MEDS ORDERED: HYDROMORPHONE 1 MG/1 ML DISP.SYRIN IV ONE (21:30)
[2020-02-25] MEDS ORDERED: ONDANSETRON HCL/PF 4 MG/2 ML VIAL IV ONE (22:00)
[2020-02-25 22:26] LABS: APPEARANCE,URINE CLEAR (CLEAR); BILIRUBIN,URINE NEGATIVE (NEGATIVE); BLOOD, URINE NEGATIVE Ery/uL (NEGATIVE); COLOR,URINE YELLOW (YELLOW); KETONES,URINE NEGATIVE (NEGATIVE); LEUKOCYTE ESTERASE ,URINE NEGATIVE (NEGATIVE); NITRITE, URINE NEGATIVE (NEGATIVE); PROTEIN,URINE 30 mg/dl (NEGATIVE); UGLUCOSE >=1000 mg/dL (NEGATIVE); UROBILINOGEN,URINE 0.2 EU/dL (0.2)
[2020-02-25 22:46] LABS: BACTERIA,URINE None seen /HPF (None Seen); RBC,URINE 0-2 /HPF (0-2); SQUAMOUS EPITHELIAL CELL,UR Few /HPF (None Seen); WBC,URINE 0-2 /HPF (0-3)
--- NOTE | 2020-02-25 22:59 | NUR ---
IV removed. Catheter intact and site benign. Pressure and 4x4 applied to site. No bleeding noted.
--- NOTE | 2020-02-25 23:00 | NUR ---
Patient discharged to home in stable condition. Written and verbal after care instructions given. Patient verbalizes understanding of instruction.
[2020-02-26 01:50] VITALS: BP 136/89
== END 2020-02-26 01:51 | disposition home or self-care (01) ==
LOC: ER 19:32
DX: R10.13 Epigastric pain (principal); R10.84 Generalized abdominal pain; R11.10 Vomiting, unspecified; E10.9 Type 1 diabetes mellitus without complications; Z60.2 Problems related to living alone; Z79.4 Long term (current) use of insulin
CPT/HCPCS: 36415; 80048; 80076; 81001; 82962 ×2; 83690; 85025; 96361; 96374; 96375; 96376; 99284; C9113; J1170; J2270; J2405 ×2; J7030; 81000-TC

== ENCOUNTER 2020-12-11 12:10 | Emergency (ER) | payer OTHER ==
[~2020-12-11] VITALS: Ht 172.7 cm; Wt 72.6 kg
--- NOTE | 2020-12-11 12:10 | NUR ---
PT BIBA RA102 C/O ABDOMINAL PAIN SINCE AT [facility] FOR SAME CC TODAY. PT IS AAOX4, NOT IN RESPIRATORY DISTRESS, V/S STABLE, KEPT RESTED AND COMFORTABLE. WILL CONTINUE TO MONITOR.
--- NOTE | 2020-12-11 13:53 | NUR ---
SEEN AND EXAMINED BY .
[2020-12-11] MEDS ORDERED: HYDROMORPHONE 1 MG/1 ML DISP.SYRIN ONE (13:56)
[2020-12-11] MEDS ORDERED: ONDANSETRON HCL/PF 4 MG/2 ML VIAL IVP ONE (14:00)
[2020-12-11] MEDS ORDERED: IV NS 0.9% 1,000 ML BAG IV ONE (14:00)
[2020-12-11] MEDS ORDERED: HYDROMORPHONE INJ 2 MG/ML DISP.SYRIN IV ONE (14:00)
[2020-12-11] MEDS ORDERED: ONDANSETRON HCL/PF 4 MG/2 ML VIAL ONE (14:05)
--- NOTE | 2020-12-11 14:15 | NUR ---
DILAUDID 0.5MG WASTED WITH RN SHER.
[2020-12-11 14:21] LABS: BILIRUBIN,URINE Negative (NEGATIVE); COLOR,URINE YELLOW (YELLOW); LEUKOCYTE ESTERASE ,URINE Negative (NEGATIVE); NITRITE, URINE Negative (NEGATIVE); PH,URINE 6.5 (5.0-8.0); PROTEIN,URINE 100 mg/dl (NEGATIVE); UGLUCOSE 500 MG/DL mg/dL (NEGATIVE); UROBILINOGEN,URINE 0.2 EU/dL (0.2)
[2020-12-11 14:24] LABS: BACTERIA,URINE None seen /HPF (None Seen); SQUAMOUS EPITHELIAL CELL,UR Few /HPF (None Seen); WBC,URINE 0-2 /HPF (0-3)
[2020-12-11 14:24] LABS: BASOPHILS # (AUTO) 0.1 K/uL (0.0-0.2); BASOPHILS % (AUTO) 0.9 % (0.0-2.0); EOSINOPHILS % (AUTO) 0.6 % (0.0-6.0); HEMATOCRIT 44 % (39-51); HEMOGLOBIN 14.5 g/dL (13.5-17.5); LYMPHOCYTES # (AUTO) 1.2 K/uL (0.8-4.8); LYMPHOCYTES % (AUTO) 20.8 % (20.0-44.0); MEAN CORPUSCULAR HGB CONC 33 g/dl (31.0-36.0); MEAN CORPUSCULAR VOLUME 93 fL (80-96); MONOCYTES # (AUTO) 0.3 K/uL (0.1-1.30); MONOCYTES % (AUTO) 5.7 % (2.0-12.0); NEUTROPHILS # (AUTO) 4.3 K/uL (1.8-8.9); PLATELET COUNT (AUTO) 198 K/uL (150-450)
[2020-12-11] MEDS ORDERED: IOHEXOL-300 100 ML VIAL IV ONE (14:29)
[2020-12-11] MEDS ORDERED: IV NS 0.9% 250 ML IV ONE (14:29)
[2020-12-11 14:32] LABS: CALCIUM, SERUM 9.2 mg/dL (8.5-10.1); CARBON DIOXIDE 33 mmol/L (21-32); CHLORIDE 106 mmol/L (98-107); CREATININE 1.2 mg/dL (0.6-1.3); GLUCOSE 155 mg/dL (74-106); POTASSIUM 3.7 mmol/L (3.5-5.1); SODIUM SERUM 145 mmol/L (136-145); UREA NITROGEN, BLOOD 18 mg/dL (7-18)
[2020-12-11 14:39] LABS: ALANINE AMINOTRANSFERASE 53 U/L (12-78); ALBUMIN 3.9 g/dL (3.4-5.0); ALKALINE PHOSPHATASE 84 U/L (46-116); ASPARTATE AMINOTRANSFERASE 28 U/L (15-37); BILIRUBIN,DIRECT 0.1 mg/dL (0.0-0.2); BILIRUBIN,TOTAL 0.4 mg/dL (0.2-1.0); LIPASE 64 U/L (73-393); TOTAL PROTEIN, SERUM 7.6 g/dL (6.4-8.2)
[2020-12-11 14:40] LABS: ALCOHOL, BLOOD < 3 mg/dL (0-0)
--- NOTE | 2020-12-11 14:48 | NUR ---
PT IS WHEELED TO CT SCAN VIA [facility].
--- NOTE | 2020-12-11 15:30 | NUR ---
IV removed. Catheter intact and site benign. Pressure and 4x4 applied to site. No bleeding noted.
--- NOTE | 2020-12-11 15:55 | NUR ---
pt refused to sign discharge paperwork.
[2020-12-11 15:56] VITALS: BP 125/76
== END 2020-12-11 15:57 | disposition home or self-care (01) ==
LOC: ER 12:46
DX: R10.84 Generalized abdominal pain (principal); Z76.5 Malingerer [conscious simulation]; R11.2 Nausea with vomiting, unspecified; E10.9 Type 1 diabetes mellitus without complications; Z60.2 Problems related to living alone; Z79.4 Long term (current) use of insulin
CPT/HCPCS: 36415; 71045; 74177; 80048; 80076; 80307; 80320; 81001; 82962; 83690; 85025; 93005; 96361; 96374; 96375; 99285; J1170; J2405; J7030; J7050; Q9967; G0480